=== PATIENT | male | born 1995 | race American Indian/Alaskan Native ===

== ENCOUNTER 2017-01-20 01:46 | Emergency (ER) | payer MEDICAID ==
--- NOTE | 2017-01-20 02:41 | Emergency Department Report ---
ED Psych HPI - General Chief Complaint: Psych Stated Complaint: MH EVAL Time Seen by Provider: 01/20/17 02:26 Source: patient, family Mode of arrival: Ambulatory - History of Present Illness Initial Comments: Patient is 21 years old male history of schizophrenia found pacing around in the hospital parking lots. Mother was called and stated that patient has been talking to his father the whole morning yesterday and he is making threats to kill her and other people because he thinks all people are demons. On questioning patient denied suicidal or homicidal ideation. He just kept saying that he does want to get his money back from his friend took his money. - Related Data Home Medications Medication Instructions Recorded Confirmed Last Taken Unobtainable 01/20/17 01/20/17 Unknown Allergies Allergy/AdvReac Type Severity Reaction Status Date / Time No Known Allergies Allergy Unverified 01/20/17 01:49 ED Review of Systems ROS: Stated complaint: MH EVAL Other details as noted in HPI Comment: All other systems reviewed and negative Respiratory: denies: cough, shortness of breath, SOB with exertion Cardiovascular: denies: chest pain, palpitations, dyspnea on exertion Gastrointestinal: denies: abdominal pain, nausea, vomiting, diarrhea, constipation, hematemesis, melena, hematochezia Genitourinary: denies: urgency, frequency, hematuria Neurological: denies: headache ED Past Medical Hx - Past Medical History Previous Medical History?: Yes Additional medical history: Schizophrenia - Surgical History Past Surgical History?: No - Social History Smoking Status: Current Every Day Smoker - Medications Home Medications: Home Medications Medication Instructions Recorded Confirmed Last Taken Type Unobtainable 01/20/17 01/20/17 Unknown History ED Physical Exam - General Limitations: No Limitations General appearance: alert, in no apparent distress, anxious - Head Head exam: Present: atraumatic, normocephalic - Eye Eye exam: Present: normal appearance, PERRL, EOMI - ENT ENT exam: Present: normal exam, normal orophraynx - Neck Neck exam: Present: normal inspection, full ROM. Absent: tenderness, meningismus, lymphadenopathy, thyromegaly - Respiratory Respiratory exam: Present: normal lung sounds bilaterally. Absent: respiratory distress, wheezes, rales, rhonchi, chest wall tenderness, accessory muscle use, decreased breath sounds, prolonged expiratory - Cardiovascular Cardiovascular Exam: Present: regular rate, normal rhythm, normal heart sounds - GI/Abdominal GI/Abdominal exam: Present: soft, distended, normal bowel sounds. Absent: tenderness, guarding, rebound, rigid, organomegaly, mass, bruit, pulsatile mass , hernia - Extremities Exam Extremities exam: Present: normal inspection, full ROM, normal capillary refill - Back Exam Back exam: Present: normal inspection. Absent: tenderness, CVA tenderness (R), CVA tenderness (L) - Neurological Exam Neurological exam: Present: alert, oriented X3, CN II-XII intact, normal gait - Psychiatric Psychiatric exam: Present: agitated, anxious. Absent: homicidal ideation, suicidal ideation - Skin Skin exam: Present: warm, intact, normal color. Absent: cyanosis, diaphoretic ED Course Vital Signs 01/20/17 01/20/17 01/20/17 01:49 01:56 02:00 Temperature 98.9 F 98.2 F Pulse Rate 100 H 100 H Respiratory 18 18 18 Rate Blood Pressure 122/79 Blood Pressure 122/79 [Left] O2 Sat by Pulse 99 99 99 Oximetry 01/20/17 04:05 Temperature Pulse Rate Respiratory 18 Rate Blood Pressure Blood Pressure [Left] O2 Sat by Pulse 99 Oximetry ED Medical Decision Making - Lab Data Result diagrams: 01/20/17 02:52 01/20/17 02:52 Critical care attestation.: If time is entered above; I have spent that time in minutes in the direct care of this critically ill patient, excluding procedure time. ED Disposition Clinical Impression: Acute psychosis Disposition: DC/[facility] HOSP/PSY UNIT Is pt being admited?: No Condition: Stable Referrals: PRIMARY CARE [Primary Care Provider] - 3-5 Days
[2017-01-20 03:10] LABS: Basophils % (Auto) 1.2 % (0.0-1.8); Eosinophils % (Auto) 1.4 % (0.0-4.3); Hematocrit 41.6 % (35.5-45.6); Mean Corpuscular HGB Conc 34 % (32-34); Mean Corpuscular Hemoglobin 30 pg (28-32); Mean Corpuscular Volume 88 fl (84-94); Platelet Count 229 K/mm3 (140-440); Red Blood Count 4.74 M/mm3 (3.65-5.03); Red Cell Distribution Width 13.9 % (13.2-15.2); White Blood Count 8.4 K/mm3 (4.5-11.0)
[2017-01-20 03:26] LABS: Alanine Aminotransferase 19 units/L (7-56); Albumin 4.5 g/dL (3.9-5); Albumin/Globulin Ratio 1.6 %; Alkaline Phosphatase 56 units/L (35-129); Anion Gap 16 mmol/L; BUN/Creatinine Ratio 16; Blood Urea Nitrogen 11 mg/dL (9-20); Calcium 9.6 mg/dL (8.4-10.2); Carbon Dioxide 25 mmol/L (22-30); Chloride 101.6 mmol/L (98-107); Glucose 93 mg/dL (75-100); Potassium 3.8 mmol/L (3.6-5.0); Sodium 139 mmol/L (137-145); Total Protein 7.3 g/dL (6.3-8.2)
[2017-01-20 03:41] LABS: Urine Drugs of Abuse Note Disclamer
[2017-01-20 03:51] LABS: Bilirubin,Urine NEG (Negative); Blood,Urine NEG (Negative); Ketones,Urine 80 mg/dL (Negative); Leukocyte Esterase,Urine NEG (Negative); Mucus,Urine 3+ /HPF; Nitrite,Urine NEG (Negative)
--- NOTE | 2017-01-20 16:22 | Consultation ---
History of Present Illness - Reason for Consult Consult date: 01/20/17 Reason for consult: Mental Health Evaluation Requesting physician: JERRY ERVIN - Chief Complaint Chief complaint: "Nothing is wrong with me" - History of Present Psychiatric Illness Patient is 21 years old male history of schizophrenia found pacing around in the hospital parking lots. Today patient is evasive during the assessment. He stated that nothing is wrong with him. He denies having a mental health dx or being hospitalized for a mental illness. He stated that a friend has money that belong to him. He stated that his mother and this friend will not allow him to get this money, because they are out to get him. Per collateral from his mother Elsy Prabhakar, she stated that her has a hx of schizophrenia with multiple hospitalizations. She stated his behavior has been bizarre lately (not showering and not keeping himself groomed properly). She stated that he isn't compliant with his medications. She stated when he get this way, he is experiencing a "psychotic break." She stated that she gave his friend money for her son, but not out to get him in anyway. The patient denies SI/HI's and AVH' s. He denies recreational drug use, but positive for marijuana and benzos. He denies excessive alcohol consumption (etoh). She stated that her son "locks up" when he takes Risperdal. Medications and Allergies Allergies Allergy/AdvReac Type Severity Reaction Status Date / Time risperidone [From Risperdal] AdvReac Severe Unknown Verified 01/20/17 16:22 Home Medications Medication Instructions Recorded Confirmed Last Taken Type Unobtainable 01/20/17 01/20/17 Unknown History Past psychiatric history - Past Medical History Past Medical History: No medical history Past Surgical History: No surgical history - past Psychiatric treatment and history Psych: Schizophrenia psychiatric treatment history: Multiple inpatient psy settings. Per his mother's, a fam psy hx of schizophrenia. - Social History Social history: lives with family (11th grad education) Mental Status Exam - Vital signs Last Vital Signs Temp 98.2 F 01/20/17 01:56 Pulse 100 H 01/20/17 01:56 Resp 18 01/20/17 04:05 BP 122/79 01/20/17 01:56 Pulse Ox 99 01/20/17 04:05 - Exam Narrative exam: MSE: Appearance: evasive, disheveled, malodorous Behavior: regular eye contact Speech: regular rate and tone Mood: agitated Affect: congruent to mood Thought Process: circumstantial Thought Content: denies SI/HI's and AVH's, delusional, paranoid Motor Activity: sitting up in bed Cognition: A/Ox3 Insight: poor Judgment: poor Results Result Diagrams: 01/20/17 02:52 01/20/17 02:52 Abnormal lab results 01/20/17 01/20/17 01/20/17 Range/Units 02:52 02:52 03:35 Lymph # 1.1 L (1.2-5.4) K/mm3 Seg Neutrophils % 79.2 H (40.0-70.0) % Creatinine 0.7 L (0.8-1.5) mg/dL Ur Specific [place] 1.032 H (1.003-1.030) All other labs normal. Assessment and Plan Assessment and plan: Impression: Unspecified Psychosis. Substance Use DO (marijuana). Today patient is evasive during the assessment. Patient experiencing perceptional disturbances. Positive for marijuana and benzos. DDx: R/O Bipolar, R/O Substance Induced Psychosis Collateral Information: Hx of Schizophrenia Recommendation/Plan: Continue 1013 with placement to inpatient psy services. Start Zyprexa 5 mg PO HS for psychosis and Cogentin 0.5 mg Po HS for EPS prevention. Discussed possible metabolic side effects of Zyprexa with patient.
[2017-01-20 19:55] VITALS: BP 112/70
[2017-01-20] MEDS ORDERED: COGENTIN PO SCH (22:00)
== END 2017-01-21 01:39 ==
LOC: EEVIPCON 01:46 → ED 01:46
DX: F23 Brief psychotic disorder (principal); F20.9 Schizophrenia, unspecified; F17.200 Nicotine dependence, unspecified, uncomplicated
CPT/HCPCS: 36415; 80053; 80307; 81001; 85025; 99285; G0480; 80320